=== PATIENT | female | born 1985 | race Caucasian/White ===

== ENCOUNTER → 2017-04-03 | Outpatient (CLI) | payer OTHER ==
[~2017-04-03] VITALS: Ht 165.1 cm; Wt 79.5 kg
[2017-04-03 16:57] VITALS: BP 110/71; PULSE 80; Ht 165.1 cm; Wt 79.5 kg
== END | disposition home or self-care (01) ==
LOC: C.NEUR 14:08
PROVIDERS: ATTEND Internal Medicine Pulmonary Disease
DX: G47.419 Narcolepsy without cataplexy (principal); G47.11 Idiopathic hypersomnia with long sleep time; J30.9 Allergic rhinitis, unspecified

== ENCOUNTER → 2017-09-11 | Outpatient (CLI) | payer OTHER ==
[~2017-09-11] VITALS: Ht 165.1 cm; Wt 77.7 kg
[2017-09-11 12:59] VITALS: BP 105/70; PULSE 96; Ht 165.1 cm; Wt 77.7 kg
== END | disposition home or self-care (01) ==
LOC: C.NEUR 11:45
PROVIDERS: ATTEND Physician Assistant Medical
DX: G47.419 Narcolepsy without cataplexy (principal); G47.11 Idiopathic hypersomnia with long sleep time